=== PATIENT | female | born 1990 | race Caucasian/White ===

== ENCOUNTER 2025-04-24 01:43 | Inpatient (IN) | payer BC, SELFPAY ==
[2025-04-24 02:02] VITALS: BP 120/73; BMI 25.2
[2025-04-24] MEDS: LR 1000 IV ×2 (02:50→04:14)
[2025-04-24 02:56] LABS: Hematocrit 30.7 % (37.0-47.0); Hemoglobin 10.2 g/dL (12.0-16.0); Mean Corp Hgb Conc. 33.2 g/dL (33.0-37.0); Mean Corpuscular Volume 80.2 fL (81.0-99.0); Nucleated Red Blood Cells % 0 %; Platelet Count 172 10^3/uL (130-400); Red Cell Dist. Width 12.5 % (11.5-14.5)
[2025-04-24] MEDS: FENTANYL/BUPIVACAINE 100 EPIDURAL ×2 (03:54→10:46)
[2025-04-24] MEDS: SUBLIMAZE 100 MCG EPIDURAL (03:54)
[2025-04-24] MEDS: ZOFRAN 4 MG IV (09:41)
[2025-04-24] MEDS: XYLOCAINE-MPF 1% VIAL 30 ML INFIL (11:15)
[2025-04-24] MEDS: TRANEXAMIC ACID 100 IV (11:36)
[2025-04-24] MEDS: TORADOL 15 MG IV (11:37)
[2025-04-24] MEDS: CYTOTEC 800 MCG RECTAL (11:48)
[2025-04-24] MEDS: TYLENOL 975 MG PO (12:14)
[2025-04-24] MEDS: TYLENOL 650 MG PO ×2 (15:55→20:05)
[2025-04-24] MEDS: MOTRIN 600 MG PO (18:09)
[2025-04-24] MEDS: COLACE 100 MG PO (19:54)
[2025-04-25] MEDS: MOTRIN 600 MG PO ×4 (00:46→20:16)
[2025-04-25] MEDS: TYLENOL 650 MG PO ×3 (04:44→17:19)
[2025-04-25 06:59] LABS: Hematocrit 22.7 % (37.0-47.0); Hemoglobin 7.7 g/dL (12.0-16.0)
[2025-04-25] MEDS: COLACE 100 MG PO ×2 (08:06→20:13)
[2025-04-25] MEDS: PRENATAL PLUS 1 TABLET PO (08:13)
[2025-04-25] MEDS: FEOSOL 325 MG PO (20:13)
[2025-04-26] MEDS: TYLENOL 650 MG PO ×2 (02:08→09:35)
[2025-04-26] MEDS: MOTRIN 600 MG PO (05:56)
[2025-04-26] MEDS: PRENATAL PLUS 1 TABLET PO (07:53)
[2025-04-26] MEDS: COLACE 100 MG PO (07:53)
[2025-04-26] MEDS: FEOSOL 325 MG PO (07:53)
[2025-04-28 15:38] LABS: Syphilis/T. pallidum Ab Reflex Negative (Negative)
== END 2025-04-26 12:05 | disposition home or self-care (01) | DRG 807 ==
LOC: LDRP 01:43
PROVIDERS: Obstetrics & Gynecology; ADMITTING PHYSICIAN Obstetrics & Gynecology
PROC: 10E0XZZ Delivery of Products of Conception, External Approach (ICD-10-PCS; 2025-04-24)
PROC: 0UQMXZZ Repair Vulva, External Approach (ICD-10-PCS; 2025-04-24)
DX: O70.0 First degree perineal laceration during delivery (principal); Z37.0 Single live birth; Z3A.40 40 weeks gestation of pregnancy
CPT/HCPCS: 85014; 85018; 85025; 86780; 86850; 86900; 86901